=== PATIENT | female | born 1970 | race Caucasian/White ===

== ENCOUNTER 2019-04-21 08:47 | Inpatient (IN) ==
[2019-04-21] MEDS ORDERED: Acetaminophen IV 1,000 MG/100 ML INFUS..BTL IVPB ONE (08:50)
[2019-04-21] MEDS ORDERED: Pregabalin 75 MG CAPSULE PO ONE (08:50)
[2019-04-21] MEDS ORDERED: Celecoxib 100 MG CAPSULE PO ONE (08:51)
[2019-04-21] MEDS ORDERED: Ringers Solution, Lactated 1,000 ML IVC SCH ×2 (09:00→13:36)
[2019-04-21] MEDS ORDERED: Albuterol 2.5 MG/3 ML NEBULIZER IH PRN ×2 (09:02→16:26)
[2019-04-21] MEDS ORDERED: CeFAZolin Syr 2,000MG/20 ML 2,000 MG/20 ML SYRINGE IVPB ONE (09:02)
[2019-04-21] MEDS ORDERED: Ethanol\\Acetic Acid\\Na Ace\\Ben 1,000 ML IRRIG.SOLN IR ONE (09:26)
[2019-04-21] MEDS ORDERED: Ondansetron 4 MG/2 ML VIAL IVP ONE (09:34)
[2019-04-21] MEDS ORDERED: *HR* OxyCODONE Immed Rel 5 MG TABLET PO PRN (09:34)
[2019-04-21] MEDS ORDERED: *HR* Propofol 200 MG/20 ML VIAL IVP ONE (09:42)
[2019-04-21] MEDS ORDERED: Lidocaine HCL 4 ML Topical Solution (Laryng-O-Jet Kit Sterile Pak) TP ONE (09:43)
[2019-04-21] MEDS ORDERED: *HR* Succinylcholine 200 MG/10 ML VIAL IVP ONE (09:43)
[2019-04-21] MEDS ORDERED: *HR* Rocuronium Bromide 50 MG/5 ML VIAL ONE (09:43)
[2019-04-21] MEDS ORDERED: Ondansetron 4 MG/2 ML VIAL ONE (09:43)
[2019-04-21] MEDS ORDERED: Lidocaine -MPF 2% 2 ML VIAL ONE (09:43)
[2019-04-21] MEDS ORDERED: *HR* Midazolam HCl 2 MG/2 ML VIAL ONE (09:45)
[2019-04-21] MEDS ORDERED: *HR* FentaNYL (PF) 100 MCG/2 ML VIAL ONE ×3 (09:45→10:32)
[2019-04-21] MEDS ORDERED: Tranexamic Acid 1,000 MG/10 ML VIAL ONE (09:47)
[2019-04-21] MEDS ORDERED: Dexamethasone 4 MG/ML VIAL ONE (10:29)
[2019-04-21] MEDS ORDERED: Neostigmine Methylsulfate 3 MG/3 ML SYRINGE ONE (11:00)
[2019-04-21] MEDS ORDERED: *HR* HYDROMORPHONE 2 MG/ML VIAL ONE ×3 (11:10→11:30)
[2019-04-21] MEDS: *HR* HYDROmorphone (PF) 1 MG/ML SYRINGE IVP PRN ×4 (11:42→11:58)
[2019-04-21] MEDS: *HR* Promethazine 25 MG/ML VIAL IVP PRN ×2 (11:46→11:53)
[2019-04-21] MEDS ORDERED: *HR* Midazolam HCl 2 MG/2 ML VIAL IVP PRN (11:51)
[2019-04-21 12:20] LABS: Hemoglobin 11.1 g/dL (11.5-15.4)
[2019-04-21] MEDS ORDERED: *HR* Labetalol 20 MG/4 ML SYRINGE IVP ONE (12:32)
[2019-04-21] MEDS: *HR* Labetalol 20 MG/4 ML SYRINGE IVP PRN ×2 (12:33→12:38)
[2019-04-21] MEDS ORDERED: Ondansetron 4 MG/2 ML VIAL IVP PRN (13:36)
[2019-04-21] MEDS ORDERED: MOM Conc 10 ML UD.LIQ PO PRN (13:36)
[2019-04-21] MEDS ORDERED: Temazepam 15 MG CAPSULE PO PRN (13:36)
[2019-04-21] MEDS ORDERED: Ibuprofen 600 MG TABLET PO PRN (13:36)
[2019-04-21] MEDS ORDERED: *HR* Promethazine 25 MG/ML VIAL IVP PRN (13:36)
[2019-04-21] MEDS ORDERED: Sennosides 8.6 MG TABLET PO PRN (13:36)
[2019-04-21] MEDS ORDERED: Naloxone 0.4 MG/ML INJ IVP PRN ×2 (13:36→16:20)
[2019-04-21] MEDS: Ascorbic Acid 500 MG TABLET PO SCH (16:16)
[2019-04-21] MEDS ORDERED: tiZANidine 4 MG TABLET PO PRN (16:23)
[2019-04-21] MEDS ORDERED: Ketorolac 15 MG/ML VIAL IVP PRN (16:23)
[2019-04-21] MEDS: Nicotine 21 MG PATCH.TD24 TD SCH (16:46)
[2019-04-21] MEDS: *HR* OxyCODONE Immed Rel 5 MG TABLET PO PRN ×2 (16:50→20:32)
[2019-04-21] MEDS: Gabapentin 300 MG CAPSULE PO SCH (20:32)
[2019-04-22] MEDS: *HR* OxyCODONE Immed Rel 5 MG TABLET PO PRN ×3 (00:27→09:40)
[2019-04-22] MEDS: HYDROcodone BIT/Homatropine 5 MG TABLET PO PRN ×2 (02:59→11:33)
[2019-04-22] MEDS ORDERED: *HR* Enoxaparin 30 MG/0.3 ML SYRINGE SQ SCH ×2 (06:00)
[2019-04-22 07:40] LABS: Basophils % 0.1 %; Hematocrit 33.4 % (35.3-44.9); Hemoglobin 10.6 g/dL (11.5-15.4); Immature Granulocytes % 0.4 % (0-4); Lymphocytes # 1.9 K/mcL (0.6-4.6); Lymphocytes % 17.7 %; Mean Corpuscular HGB Conc 31.7 g/dL (31.6-35.5); Mean Corpuscular Hemoglobin 25.9 pg (28.0-33.3); Mean Corpuscular Volume 81.7 fL (83.0-100.0); Mean Platelet Volume 10.8 fL (9.4-12.4); Monocytes # 0.6 K/mcL (0.0-1.3); Monocytes % 5.7 %; Neutrophils # 8.1 K/mcL (1.6-8.9); Platelet Count 424 K/mcL (140-400); Red Blood Count 4.09 M/mcL (3.82-4.97); Red Cell Distribution Width 16.2 % (11.5-14.5); Segmented Neutrophils % 76.1 %; White Blood Count 10.6 K/mcL (4.3-11.1)
[2019-04-22] MEDS ORDERED: Lisinopril 20 MG TABLET PO SCH (09:00)
[2019-04-22] MEDS ORDERED: Multivit/Ca/Min/Fe/FA 1 TAB TABLET PO SCH (09:00)
[2019-04-22 09:06] LABS: BUN/Creatinine Ratio 12 (6-26); Blood Urea Nitrogen 11 mg/dL (6-20); Calcium 8.9 mg/dL (8.6-10.3); Carbon Dioxide 28 mEq/L (23-29); Chloride 103 mEq/L (98-107); Glucose 136 mg/dL (70-105); Osmolality,Calculated 287 (280-300); Sodium 138 mEq/L (136-145); eGFR For African Americans > 60 (> 60); eGFR For Non-African Americans > 60 (> 60)
[2019-04-22] MEDS: Gabapentin 300 MG CAPSULE PO SCH (09:39)
[2019-04-22] MEDS: Ascorbic Acid 500 MG TABLET PO SCH (09:39)
[2019-04-22] MEDS: Nicotine 21 MG PATCH.TD24 TD SCH (10:31)
[2019-04-22 11:47] VITALS: BP 159/88
== END 2019-04-22 14:08 | disposition home health service (06) | DRG 301 ==
LOC: SAMDAY 08:47 → 3NENU 13:13
PROVIDERS: ADMIT Orthopaedic Surgery; ATTEND Orthopaedic Surgery